=== PATIENT | male | born 1935 | race Caucasian/White ===

== ENCOUNTER → 2018-06-26 | Outpatient (CLI) | payer OTHER ==
[~2018-06-26] MED LIST: ARICEPT5 MG; ASA81 MG; CARDURA1 MG; ENALAPRIL MALEA10 MG; JANUVIA50 MG; METFORMIN HCL1000 MG; NATEGLINIDE60 MG; SYNTHROID50 MCG; ZOCOR5 MG
== END | disposition home or self-care (01) ==
LOC: NUCLEAR 06-19 07:00
DX: I20.9 Angina pectoris, unspecified (principal)
CPT/HCPCS: 78452; 93017; A9500; J0153

== ENCOUNTER 2022-02-18 14:56 | Outpatient (CLI) | payer OTHER | END 2022-02-18 14:58 | disposition home or self-care (01) | LOC: NUCLEAR 14:56 | PROVIDERS: ATTEND Internal Medicine | DX: I82.402 Acute embolism and thrombosis of unspecified deep veins of left lower extremity (principal) ==